=== PATIENT | male | born 1955 | race Hispanic/Latino ===

== ENCOUNTER 2021-04-24 11:18 | Emergency (ER) | payer OTHER ==
[~2021-04-24] VITALS: Ht 185.4 cm; Wt 72.1 kg
[2021-04-24 12:02] VITALS: BP 156/73
[2021-04-24 13:35] VITALS: BP 136/72
== END 2021-04-24 13:36 | disposition home or self-care (01) ==
LOC: EDH 11:18
DX: T63.441A Toxic effect of venom of bees, accidental (unintentional), initial encounter (principal); Z88.0 Allergy status to penicillin; Z88.6 Allergy status to analgesic agent; Z88.5 Allergy status to narcotic agent; Y92.89 Other specified places as the place of occurrence of the external cause

== ENCOUNTER 2022-12-19 11:54 | Inpatient (IN) | payer OTHER ==
[~2022-12-19] VITALS: Ht 185.4 cm; Wt 76.2 kg
[2022-12-19 12:45] LABS: BASOPHILS % (AUTO) 0.4 % (0.0-5.0); EOSINOPHILS % (AUTO) 0.5 % (0.0-8.0); HEMATOCRIT 22.5 % (42-54); LYMPHOCYTES % (AUTO) 31.3 % (21.0-51.0); MEAN CORPUSCULAR HEMOGLOBIN 33.6 pg (27.0-33.0); MEAN CORPUSCULAR HGB CONC 33.3 g/dL (32.0-36.0); MEAN CORPUSCULAR VOLUME 100.9 fL (79-99); MONOCYTES % (AUTO) 11.5 % (3.0-13.0); NEUTROPHILS % (AUTO) 55.9 % (40.0-77.0); NUCLEATED RED BLOOD CELLS 0.3 % (0.0-0.19); PLATELET COUNT (AUTO) 198 K/uL (130-400); RED BLOOD CELL COUNT(AUTO) 2.23 MIL/uL (4.50-6.20); RED CELL DISTRIBUTION WIDTH 13.8 % (11.0-15.5); WHITE BLOOD COUNT (AUTO) 7.7 K/uL (4.8-10.8)
[2022-12-19 12:48] LABS: APPEARANCE,URINE CLEAR (CLEAR); BILIRUBIN,URINE NEGATIVE (NEGATIVE); COLOR,URINE YELLOW (YELLOW); GLUCOSE, URINE (UA) NEGATIVE (NEGATIVE); KETONES,URINE NEGATIVE (NEGATIVE); LEUKOCYTE ESTERASE ,URINE NEGATIVE Leu/uL (NEGATIVE); NITRATE,URINE NEGATIVE (NEGATIVE); OCCULT BLOOD,URINE NEGATIVE (NEGATIVE); PH,URINE 5.5 (5.0-8.0); PROTEIN,URINE 20 mg/dL (NEGATIVE)
[2022-12-19 12:55] LABS: CREATININE 1.1 mg/dL (0.5-1.5); POTASSIUM 3.4 mmol/L (3.5-5.1)
[2022-12-19 12:59] LABS: BACTERIA,URINE FEW /HPF (None Seen); MUCUS,URINE RARE LPF (None Seen); RBC,URINE 0-1 /HPF (0-1); SQUAMOUS EPITHELIAL CELL,UR RARE /HPF (0-2)
[2022-12-19 13:00] LABS: ALBUMIN 2.9 g/dL (3.5-5.0); TOTAL PROTEIN, SERUM 7.2 g/dL (6.0-8.3)
[2022-12-19] MEDS ORDERED: IOHEXOL 350 MG/ML 100ML INFUS..BTL IV ONE (14:11)
[2022-12-19] MEDS ORDERED: PANTOPRAZOLE 40MG INJ 80 MG in 0.9%NACL 100ML 100 ML IVP SCH ×2 (16:52→18:00)
[2022-12-19] MEDS ORDERED: PANTOPRAZOLE 40 MG/VIAL IVP STA (16:52)
[2022-12-19] MEDS ORDERED: POTASSIUM BICARB/CIT AC 25 MEQ TABLET.EFF PO ONE (17:00)
[2022-12-19] MEDS ORDERED: ACETAMINOPHEN 325 MG TAB PO PRN (17:30)
[2022-12-19] MEDS ORDERED: ONDANSETRON 4MG INJ IVP PRN (17:30)
[2022-12-19] MEDS ORDERED: ROSU20TA31 PO (21:06)
[2022-12-19] MEDS ORDERED: AMLO-258 PO (21:06)
[2022-12-19] MEDS ORDERED: NABU-141 PO (21:06)
[2022-12-20] VITALS (16 sets, daily range): BP systolic 100–135; BP diastolic 49–89
[2022-12-20] MEDS ORDERED: PANTOPRAZOLE 40 MG/VIAL ONE (04:17)
[2022-12-20 05:01] LABS: BASOPHILS % (AUTO) 0.5 % (0.0-5.0); EOSINOPHILS % (AUTO) 0.9 % (0.0-8.0); LYMPHOCYTES % (AUTO) 39.5 % (21.0-51.0); MEAN CORPUSCULAR HEMOGLOBIN 32.8 pg (27.0-33.0); MEAN CORPUSCULAR HGB CONC 32.4 g/dL (32.0-36.0); MEAN CORPUSCULAR VOLUME 101.1 fL (79-99); MONOCYTES % (AUTO) 13.5 % (3.0-13.0); NEUTROPHILS % (AUTO) 45.2 % (40.0-77.0); PLATELET COUNT (AUTO) 165 K/uL (130-400); RED BLOOD CELL COUNT(AUTO) 1.86 MIL/uL (4.50-6.20); RED CELL DISTRIBUTION WIDTH 13.8 % (11.0-15.5); WHITE BLOOD COUNT (AUTO) 5.5 K/uL (4.8-10.8)
[2022-12-20 05:10] LABS: ALBUMIN 2.2 g/dL (3.5-5.0); MAGNESIUM 1.7 mg/dL (1.80-2.40); POTASSIUM 3.4 mmol/L (3.5-5.1); TOTAL PROTEIN, SERUM 5.6 g/dL (6.0-8.3)
[2022-12-20 05:31] LABS: HEMATOCRIT 18.8 % (42-54)
[2022-12-20] MEDS ORDERED: POTASSIUM CHLORIDE 20MEQ/100ML 100 ML IV PRN ×2 (06:00)
[2022-12-20] MEDS ORDERED: POTASSIUM CHLORIDE 10% ELIXIR 20 MEQ/15 ML UDCUP PO PRN (06:00)
[2022-12-20] MEDS ORDERED: LIDOCAINE HCL-MPF 1% 2ML VIAL IV PRN (06:00)
[2022-12-20 08:44] LABS: INR 1.1 (0.85-1.15); PROTHROMBIN TIME 11.9 SEC (9.6-11.6)
[2022-12-20 08:46] LABS: PARTIAL THROMBOPLASTIN TIME 26.2 SEC (26.3-35.5)
[2022-12-20] MEDS ORDERED: PANTOPRAZOLE 40 MG/VIAL IVP SCH (09:00)
[2022-12-20] MEDS ORDERED: PROPOFOL 10 MG/ML 20ML VIAL IV ONE (09:21)
[2022-12-20] MEDS ORDERED: PHENYLEPHRINE HCL 10 MG/ML 1ML VIAL IV ONE (09:22)
[2022-12-20] MEDS ORDERED: 0.9%NACL 1000ML 1,000 ML IV ONE (11:56)
[2022-12-20] MEDS: KCL 20 MEQ ERTAB PO PRN ×2 (11:59→14:16)
[2022-12-20 14:54] LABS: % IRON SATURATION 3.4 % (30-44)
[2022-12-20] MEDS ORDERED: MAGNESIUM 2GM PREMIX 50ML 50 ML IV PRN (18:30)
[2022-12-20] MEDS: PANTOPRAZOLE 40 MG TAB DR PO SCH (20:22)
[2022-12-20] MEDS ORDERED: ALPR0.5T8 PO (20:25)
[2022-12-20] MEDS: ALPRAZOLAM 0.5 MG TABLET PO SCH (21:00)
[2022-12-21 04:00] VITALS: BP 109/60
[2022-12-21 04:53] LABS: MEAN CORPUSCULAR HEMOGLOBIN 32.3 pg (27.0-33.0); RED BLOOD CELL COUNT(AUTO) 1.92 MIL/uL (4.50-6.20); RED CELL DISTRIBUTION WIDTH 14.2 % (11.0-15.5); WHITE BLOOD COUNT (AUTO) 5.6 K/uL (4.8-10.8)
[2022-12-21 05:00] LABS: ALBUMIN 2.2 g/dL (3.5-5.0); MAGNESIUM 2.1 mg/dL (1.80-2.40); POTASSIUM 4.1 mmol/L (3.5-5.1); TOTAL PROTEIN, SERUM 5.8 g/dL (6.0-8.3)
[2022-12-21 05:19] LABS: HEMATOCRIT 19.4 % (42-54)
[2022-12-21 08:00] VITALS: BP 127/64
[2022-12-21] MEDS: AMLODIPINE 5 MG TAB PO SCH (09:05)
[2022-12-21] MEDS: PANTOPRAZOLE 40 MG TAB DR PO SCH ×2 (09:05→20:37)
[2022-12-21] MEDS: ATORVASTATIN 40 MG TABLET PO SCH (09:06)
[2022-12-21 12:00] VITALS: BP 129/58
[2022-12-21 16:00] VITALS: BP 125/60
[2022-12-21] MEDS ORDERED: COMPOUND IV MISC 1 EACH IVSOLN MISC PRN (16:00)
[2022-12-21] MEDS: FOLIC ACID 1 MG TABLET PO SCH (17:03)
[2022-12-21] MEDS: CYANOCOBALAMIN (VITAMIN B-12) 1,000 MCG TABLET PO SCH (17:03)
[2022-12-21] MEDS: IRON SUCROSE COMPLEX 300 MG in 0.9% NACL 250ML 250 ML IV SCH (17:04)
[2022-12-21 20:00] VITALS: BP 117/59
[2022-12-21] MEDS: ALPRAZOLAM 0.5 MG TABLET PO SCH (20:37)
[2022-12-22] VITALS (7 sets, daily range): BP systolic 101–127; BP diastolic 48–59
[2022-12-22] MEDS: CYANOCOBALAMIN (VITAMIN B-12) 1,000 MCG TABLET PO SCH (08:18)
[2022-12-22] MEDS: FOLIC ACID 1 MG TABLET PO SCH (08:18)
[2022-12-22] MEDS: AMLODIPINE 5 MG TAB PO SCH (08:18)
[2022-12-22] MEDS: ATORVASTATIN 40 MG TABLET PO SCH (08:18)
[2022-12-22] MEDS: PANTOPRAZOLE 40 MG TAB DR PO SCH ×2 (08:18→21:03)
[2022-12-22] MEDS ORDERED: EPOETIN ALFA-EPBX (NON-ESRD) 10,000 UNIT/ML VIAL SQ SCH (09:00)
[2022-12-22] MEDS: IRON SUCROSE COMPLEX 300 MG in 0.9% NACL 250ML 250 ML IV SCH (16:49)
[2022-12-22] MEDS: ALPRAZOLAM 0.5 MG TABLET PO SCH (22:26)
[2022-12-23] VITALS (7 sets, daily range): BP systolic 100–131; BP diastolic 44–58
[2022-12-23] MEDS: CYANOCOBALAMIN (VITAMIN B-12) 1,000 MCG TABLET PO SCH (09:13)
[2022-12-23] MEDS: FOLIC ACID 1 MG TABLET PO SCH (09:13)
[2022-12-23] MEDS: PANTOPRAZOLE 40 MG TAB DR PO SCH ×2 (09:13→20:53)
[2022-12-23] MEDS: AMLODIPINE 5 MG TAB PO SCH (09:13)
[2022-12-23] MEDS: ATORVASTATIN 40 MG TABLET PO SCH (09:13)
[2022-12-23] MEDS: IRON SUCROSE COMPLEX 300 MG in 0.9% NACL 250ML 250 ML IV SCH (09:44)
[2022-12-23] MEDS: ALPRAZOLAM 0.5 MG TABLET PO SCH (20:52)
[2022-12-24 04:05] VITALS: BP 100/53
[2022-12-24 05:32] LABS: BASOPHILS % (AUTO) 0.5 % (0.0-5.0); EOSINOPHILS % (AUTO) 1.2 % (0.0-8.0); LYMPHOCYTES % (AUTO) 31.2 % (21.0-51.0); MEAN CORPUSCULAR HEMOGLOBIN 31.7 pg (27.0-33.0); MEAN CORPUSCULAR HGB CONC 31.5 g/dL (32.0-36.0); MEAN CORPUSCULAR VOLUME 100.5 fL (79-99); MONOCYTES % (AUTO) 16.1 % (3.0-13.0); NEUTROPHILS % (AUTO) 49.1 % (40.0-77.0); NUCLEATED RED BLOOD CELLS 1.3 % (0.0-0.19); PLATELET COUNT (AUTO) 209 K/uL (130-400); RED BLOOD CELL COUNT(AUTO) 1.99 MIL/uL (4.50-6.20); RED CELL DISTRIBUTION WIDTH 15.7 % (11.0-15.5); WHITE BLOOD COUNT (AUTO) 8.5 K/uL (4.8-10.8)
[2022-12-24 05:55] LABS: MAGNESIUM 1.8 mg/dL (1.80-2.40); POTASSIUM 3.8 mmol/L (3.5-5.1)
[2022-12-24 07:30] VITALS: BP 108/53
[2022-12-24] MEDS: PANTOPRAZOLE 40 MG TAB DR PO SCH (08:14)
[2022-12-24] MEDS: CYANOCOBALAMIN (VITAMIN B-12) 1,000 MCG TABLET PO SCH (08:14)
[2022-12-24] MEDS: FOLIC ACID 1 MG TABLET PO SCH (08:14)
[2022-12-24] MEDS: ATORVASTATIN 40 MG TABLET PO SCH (08:14)
[2022-12-24] MEDS: AMLODIPINE 5 MG TAB PO SCH (09:00)
[2022-12-24 11:00] VITALS: BP 109/56
[2022-12-24 16:00] VITALS: BP 106/59
== END 2022-12-24 19:06 | disposition home or self-care (01) | DRG 368 ==
LOC: EDH 11:54 → UNDOADMOB 17:17 → OBSVTOIN 17:17 → EDHIP 17:17 → 4BH 22:25
PROVIDERS: ADMIT Internal Medicine Infectious Disease; ATTEND Internal Medicine Infectious Disease
PROC: 0DB78ZX Excision of Stomach, Pylorus, Via Natural or Artificial Opening Endoscopic, Diagnostic (ICD-10-PCS; principal; 2022-12-20)
DX: K21.01 Gastro-esophageal reflux disease with esophagitis, with bleeding (principal); K29.71 Gastritis, unspecified, with bleeding; D62 Acute posthemorrhagic anemia; R18.8 Other ascites; Z20.822 Contact with and (suspected) exposure to COVID-19; I10 Essential (primary) hypertension; E87.6 Hypokalemia; E66.9 Obesity, unspecified; E78.00 Pure hypercholesterolemia, unspecified; E83.42 Hypomagnesemia; Z85.21 Personal history of malignant neoplasm of larynx; Z85.89 Personal history of malignant neoplasm of other organs and systems; Z88.1 Allergy status to other antibiotic agents; Z88.8 Allergy status to other drugs, medicaments and biological substances; Z88.0 Allergy status to penicillin; Z88.5 Allergy status to narcotic agent; Z68.22 Body mass index [BMI] 22.0-22.9, adult
CPT/HCPCS: 36415; 43239; 74177; 80048; 80053; 81001; 82270; 82728; 83540; 83550; 83735; 85025; 85027; 85610; 85730; 87426; 99291; A4606; C9113; G0378; J1756; J2370; J2704; J3475; J7030; J7050; Q9967